=== PATIENT | male | born 2000 | race Caucasian/White ===

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

== ENCOUNTER 2022-10-12 22:53 | Emergency (ER) | payer SELFPAY ==
--- NOTE | 2022-10-12 23:05 | EDPHYS ---
Physician Documentation [facility] Name: Corby Luciano Age: 22 yrs Sex: Male : 2000 Arrival Date: 10/12/2022 Time: 22:58 Bed DX3 Private MD: ED Physician Jevon Vasquez HPI: 10/12 23:01 This 22 yrs old Male presents to ER via Unassigned with complaints of Alcohol sp3 intoxication. 23:01 2-year-old male with no known past medical history presents via EMS for chief complaint sp3 alcohol intoxication and incoherence now resolved. Patient was drinking with friends prior to his job at [employer] which she did not make. Upon EMS arrival he was difficult to arouse but subsequent to that he was awake and alert and oriented no acute distress. He states he has drank alcohol in the form of hard liquor without any other drugs or other stimulants. On review of systems, he denies headache, neck pain, facial pain, chest pain, shortness of breath, back pain, abdominal pain, nausea, vomiting, diarrhea, syncope, near syncope, rash, known sick contacts or any other symptoms at this time.. ROS: 23:02 Constitutional: Negative for fever, chills, and weight loss, Eyes: Negative for injury, sp3 pain, redness, and discharge, ENT: Negative for injury, pain, and discharge, Neck: Negative for injury, pain, and swelling, Cardiovascular: Negative for chest pain, palpitations, and edema, Respiratory: Negative for shortness of breath, cough, wheezing, and pleuritic chest pain, Abdomen/GI: Negative for abdominal pain, nausea, vomiting, diarrhea, and constipation, Back: Negative for injury and pain, MS/Extremity: Negative for injury and deformity, Skin: Negative for injury, rash, and discoloration, Psych: Negative for depression, anxiety, suicide ideation, homicidal ideation, and hallucinations, Endocrine: Negative for neck swelling, polydipsia, polyuria, polyphagia, and marked weight changes, Hematologic/Lymphatic: Negative for swollen nodes, abnormal bleeding, and unusual bruising. 23:02 All other systems are negative. Exam: 23:02 Constitutional: This is a well developed, well nourished patient who is awake, alert, sp3 and in no acute distress. Head/Face: Normocephalic, atraumatic. Eyes: Pupils equal round and reactive to light, extra-ocular motions intact. Lids and lashes normal. Conjunctiva and sclera are non-icteric and not injected. Cornea within normal limits. Periorbital areas with no swelling, redness, or edema. Neck: Trachea midline, no thyromegaly or masses palpated, and no cervical lymphadenopathy. Supple, full range of motion without nuchal rigidity, or vertebral point tenderness. No Meningismus. Chest/axilla: Normal chest wall appearance and motion. Nontender with no deformity. No lesions are appreciated. Cardiovascular: Regular rate and rhythm with a normal S1 and S2. No gallops, murmurs, or rubs. Normal PMI, no JVD. No pulse deficits. Respiratory: Lungs have equal breath sounds bilaterally, clear to auscultation and percussion. No rales, rhonchi or wheezes noted. No increased work of breathing, no retractions or nasal flaring. Abdomen/GI: Soft, non-tender, with normal bowel sounds. No distension or tympany. No guarding or rebound. No evidence of tenderness throughout. Skin: Warm, dry with normal turgor. Normal color with no rashes, no lesions, and no evidence of cellulitis. MS/ Extremity: Pulses equal, no cyanosis. Neurovascular intact. Full, normal range of motion. Neuro: Awake and alert, GCS 15, oriented to person, place, time, and situation. Cranial nerves II-XII grossly intact. Motor strength 5/5 in all extremities. Sensory grossly intact. Cerebellar exam normal. Normal gait. Psych: Awake, alert, with orientation to person, place and time. Behavior, mood, and affect are within normal limits. MDM: 22:59 Patient medically screened. sp3 23:02 Data reviewed: vital signs, nurses notes, EMS record. ED course: 22-year-old male now sp3 with acute alcohol intoxication with completely normal mental status and neurological exam. He contracts for safety and denies suicidal ideation, homicidal ideation and is not responding to internal stimuli. He is called his ride and we will safely discharge him home. I have counseled him on the use of alcohol. No intervention or laboratory testing indicated at this time.. Administered Medications: No medications were administered Disposition Summary: 10/12/22 23:04 Discharge Ordered Location: Home sp3 Condition: Stable sp3 Diagnosis - Alcohol abuse with intoxication sp3 - Alcohol use, unspecified with intoxication sp3 Discharge Instructions: - Discharge Summary Sheet sp3 - Alcohol Intoxication sp3 Forms: - Medication Reconciliation Form sp3 - Thank You Letter sp3 - Antibiotic Education sp3 - Prescription Opioid Use sp3 Signatures: Jevon Vasquez MD MD sp3
--- NOTE | 2022-10-12 23:20 | ER ---
Nurse's Notes [facility] Name: Corby Luciano Age: 22 yrs Sex: Male : 2000 Arrival Date: 10/12/2022 Time: 22:58 Bed DX3 Private MD: Diagnosis: Alcohol abuse with intoxication;Alcohol use, unspecified with intoxication Presentation: 10/12 23:19 Note pt discharged by Dr Vasquez on arrival. bb ED Course: 22:58 Patient arrived in ED. sb4 22:59 Jevon Vasquez MD is Attending Physician. sp3 Administered Medications: No medications were administered Outcome: 23:04 Discharge ordered by . sp3 23:19 Patient left the ED. bb Signatures: Erinn Loera RN RN bb Jevon Vasquez MD MD sp3 Lolita Sunshine, PA-C PA-C sb4
== END 2022-10-12 23:19 | disposition home or self-care (01) ==
LOC: ER 22:53
DX: F10.129 Alcohol abuse with intoxication, unspecified (principal)

== ENCOUNTER 2024-01-04 12:55 | Emergency (ER) | payer SELFPAY ==
--- NOTE | 2024-01-04 13:23 | ER ---
Nurse's Notes [facility] Name: Corby Luciano Age: 23 yrs Sex: Male : 2000 Arrival Date: 01/04/2024 Time: 12:55 Bed 15 Private MD: Diagnosis: Contact with and (suspected) exposure to hazardous, chiefly nonmedicinal, chemicals Presentation: 01/03 12:59 Chief complaint: EMS states: pt was at working and got ammonia on his skin. 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 Coronavirus screen: At this time, the client does not indicate any symptoms associated with coronavirus-19. Ebola Screen: No symptoms or risks identified at this time. Initial Sepsis Screen: Does the patient meet any 2 criteria? No. Patient's initial sepsis screen is negative. Does the patient have a suspected source of infection? No. Patient's initial sepsis screen is negative. Risk Assessment: Do you want to hurt yourself or someone else? Patient reports no desire to harm self or others. Onset of symptoms was January 04, 2024. Care prior to arrival:. 12:59 Acuity: STEPHANIE 4 as6 12:59 Method Of Arrival: EMS: [facility] as6 Historical: - Allergies: 12:58 No Known Allergies; as6 - PMHx: 12:58 Asthma; as6 - PSHx: 12:58 None; as6 - Immunization history:: Adult Immunizations up to date. - Infectious Disease History:: Denies. - Social history:: Smoking status: Reported history of juuling and/or vaping. Screenin:25 [facility] ED Fall Risk Assessment (Adult) History of falling in the last 3 months, nj1 including since admission No falls in past 3 months (0 pts) Confusion or Disorientation No (0 pts) Intoxicated or Sedated No (0 pts) Impaired Gait No (0 pts) Mobility Assist Device Used No (0 pt) Altered Elimination No (0 pt) Score/Fall Risk Level 0 - 2 = Low Risk Oriented to surroundings, Maintained a safe environment, Hourly rounding (assess needs \T\ fall precautionary measures) done. Abuse screen: Denies threats or abuse. Denies injuries from another. Nutritional screening: No deficits noted. Tuberculosis screening: No symptoms or risk factors identified. Assessment: 13:09 General: Appears in no apparent distress. comfortable, Behavior is calm, cooperative, nj1 appropriate for age. Pain: Denies pain. Neuro: Level of Consciousness is awake, alert, obeys commands, Oriented to person, place, time, situation. 13:09 Cardiovascular: Patient's skin is warm and dry. Respiratory: Airway is patent nj1 Respiratory effort is even, unlabored. Respiratory: Denies shortness of breath. Derm: Pt has decon suit on, had shower at work prior to arrival. 13:32 Reassessment: Patient appears in no apparent distress at this time. Patient is alert, nj1 oriented x 3, equal unlabored respirations, skin warm/dry/pink. Vital Signs: 12:59 BP 146 / 92; Pulse 103; Resp 18; Temp 97.8; Pulse Ox 98% ; Weight 117.93 kg; Height 6 as6 ft. 2 in. ; Pain 0/10; 12:59 Body Mass Index 33.38 (117.93 kg, 187.96 cm) as6 12:59 Pain Scale: Adult as6 ED Course: 12:57 Patient arrived in ED. as6 12:58 Arm band placed on. as6 13:00 Nicol Puga, RN is Primary Nurse. nj1 13:00 Ceferino Cabrera DO is Attending Physician. ms3 13:01 Triage completed. as6 13:06 Stanislav Hernandez PA is PHCP. cp 13:25 Patient has correct armband on for positive identification. Bed in low position. Call nj1 light in reach. Adult w/ patient. Provided Education on: call light, fall precautions. 13:25 No provider procedures requiring assistance completed. Patient did not have IV access nj1 during this emergency room visit. Administered Medications: No medications were administered Medication: 13:26 VIS not applicable for this client. nj1 Outcome: 13:22 Discharge ordered by . cp 13:25 Discharged to home ambulatory, nj1 13:25 Condition: stable 13:25 Discharge instructions given to patient, Instructed on discharge instructions, follow up and referral plans. safety practices, Demonstrated understanding of instructions, follow-up care, 13:33 Patient left the ED. nj1 Signatures: Stanislav Hernandez PA PA cp Sims, Marcus, DO DO ms3 Jeffrey Whitney RN RN as6 Edd, Nicol, RN RN nj1
--- NOTE | 2024-01-04 13:23 | EDPHYS ---
Physician Documentation [facility] Name: Corby Luciano Age: 23 yrs Sex: Male : 2000 Arrival Date: 01/04/2024 Time: 12:55 Bed 15 Private MD: ED Physician Ceferino Cabrera HPI: 01/03 13:22 This 23 yrs old Male presents to ER via EMS with complaints of Chemical Exposure. cp 13:22 The patient presents to the emergency department known chemical exposure. Patient cp presents to ED after known direct contact with liquid Anhydrous Ammonia on clothing. Patient presents after being decontaminated at work site and expresses no complaints. Patient declines any treatment at this time and requests discharge. Declines to have us contact Poison Control for guidance. Historical: - Allergies: 12:58 No Known Allergies; as6 - PMHx: 12:58 Asthma; as6 - PSHx: 12:58 None; as6 - Immunization history:: Adult Immunizations up to date. - Infectious Disease History:: Denies. - Social history:: Smoking status: Reported history of juuling and/or vaping. ROS: 13:22 Constitutional: HX per HPI cp Exam: 13:22 Constitutional: The patient appears in no acute distress, alert, awake, cp non-diaphoretic, non-toxic, well developed, well nourished, 13:22 Head/Face: Normocephalic, atraumatic. cp 13:22 Cardiovascular: Rate: tachycardic, 13:22 Respiratory: the patient does not display signs of respiratory distress, Respirations: normal, no use of accessory muscles, no retractions, labored breathing, is not present, Breath sounds: are clear throughout, no decreased breath sounds, no stridor, no wheezing, 13:22 Abdomen/GI: Inspection: abdomen appears normal, 13:22 Neuro: Orientation: to person, place \T\ time. Mentation: is normal, Motor: moves all fours, strength is normal, Vital Signs: 12:59 BP 146 / 92; Pulse 103; Resp 18; Temp 97.8; Pulse Ox 98% ; Weight 117.93 kg; Height 6 as6 ft. 2 in. ; Pain 0/10; 12:59 Body Mass Index 33.38 (117.93 kg, 187.96 cm) as6 12:59 Pain Scale: Adult as6 MDM: 13:22 Patient medically screened. cp 13:22 Differential diagnosis: trauma, chemical exposure, rash, inhalation injury. cp 13:22 Data reviewed: vital signs, and as a result, I will discharge patient. ED course: cp Patient instructed he can return to ED at any time for evaluation if condition worsens. Administered Medications: No medications were administered Disposition Summary: 01/04/24 13:22 Discharge Ordered Notes: Location: Home cp Problem: new cp Symptoms: have improved cp Condition: Stable cp Diagnosis - Contact with and (suspected) exposure to hazardous, chiefly nonmedicinal, chemicals cp Followup: cp - With: Emergency Department - When: As needed - Reason: Worsening of condition Discharge Instructions: - Discharge Summary Sheet cp - Chemical Inhalation Injury, Adult cp Forms: - Medication Reconciliation Form cp - Antibiotic Education cp - Prescription Opioid Use cp - Patient Portal Instructions cp - Leadership Thank You Letter cp Signatures: Stanislav Hernandez PA PA cp Jeffrey Whitney RN RN as6
[2024-01-04 14:01] VITALS: BP 146/92; TEMP 97.8; O2SAT 98
== END 2024-01-04 13:33 | disposition home or self-care (01) ==
LOC: ER 12:55
DX: Z77.098 Contact with and (suspected) exposure to other hazardous, chiefly nonmedicinal, chemicals (principal)
CPT/HCPCS: 99283